=== PATIENT | female | born 1985 | race African-American/Black ===

== ENCOUNTER 2018-05-29 21:48 | Emergency (ER) | payer OTHER ==
[~2018-05-29] VITALS: Ht 147.3 cm; Wt 83.9 kg
[2018-05-29 22:00] VITALS: BP 121/79
--- NOTE | 2018-05-29 22:36 | PHYS DOC ---
Adult General Chief Complaint Chief Complaint: FLU SYMPTOM HPI HPI Patient is a 33-year-old female who presents with complaint of cough, fever, body aches and chills that started yesterday. Patient states that she also has some right ear pain and is worried that she has a right ear infection. 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 There are other sick contacts at home with son having just gotten similar symptoms today. She denies any vomiting or diarrhea. Review of Systems Review of Systems Constitutional: Positive fever and chills [] HENT: Positive congestion without sore throat. Positive right ear pain [] Respiratory: Positive cough without shortness of breath [] Cardiovascular: No additional information not addressed in HPI [] GI: Denies abdominal pain, nausea, vomiting or diarrhea [] Musculoskeletal: Positive body aches and back pain [] Integument: Denies rash or skin lesions [] Neurologic: Positive headache without focal weakness or sensory changes [] Current Medications Current Medications Current Medications Medications (Trade) Dose Ordered Sig/Ludmila Start Time Stop Time Status Last Admin Dose Admin Amoxicillin/ Clavulanate Potassium (Augmentin 875/ 125mg) 1 tab 1X ONCE 05/29/18 22:30 2 22:31 UNV Ibuprofen (Motrin) 600 mg 1X ONCE 05/29/18 22:30 2 22:31 UNV Physical Exam Physical Exam Constitutional: Well developed, well nourished, no acute distress, non-toxic appearance. [] HENT: Normocephalic, atraumatic, bilateral external ears normal, oropharynx moist, no oral exudates, nose normal. Right TM is dull and erythematous. [] Neck: Normal range of motion, no tenderness, supple, no stridor. [] Cardiovascular: Mildly tachycardic rate with regular rhythm[] Lungs & Thorax: Bilateral breath sounds clear to auscultation [] Abdomen: Bowel sounds normal, soft. [] Skin: Warm, dry, no erythema, no rash. [] Neurologic: Alert and oriented X 3, no focal deficits noted. [] EKG EKG [] Radiology/Procedures Radiology/Procedures [] Course & Med Decision Making Course & Med Decision Making Pertinent Labs and Imaging studies reviewed. (See chart for details) [] Dragon Disclaimer Dragon Disclaimer This electronic medical record was generated, in whole or in part, using a voice recognition dictation system. Departure Departure: Impression: Primary Impression: Influenza A Additional Impression: Otitis media Disposition: 01 HOME, SELF-CARE Condition: STABLE Referrals: PCP,UNKNOWN (PCP) Patient Instructions: Influenza, Adult, Otitis Media, Adult Scripts Sulfamethoxazole/Trimethoprim (BACTRIM DS TABLET) 1 Each Tablet 1 TAB PO BID for infection, #20 TAB Prov: AZUL HARKINS Jr. DO 05/29/18 Oseltamivir Phosphate (TAMIFLU) 75 Mg Capsule 1 CAP PO BID for flu, #10 CAP Prov: AZUL HARKINS Jr. DO 05/29/18 Problem Qualifiers Additional Impression: Otitis media Otitis media type: unspecified Chronicity: acute Qualified Codes: H66.90 - Otitis media, unspecified, unspecified ear AZUL HARKINS Jr. DO May 29, 2018 22:36
[2018-05-29] MEDS ORDERED: AMOXICILLIN/K CLAV 875/125MG TABLET. PO ONE (22:45)
[2018-05-29] MEDS ORDERED: IBUPROFEN 600 MG TABLET. PO ONE (22:45)
[2018-05-29] MEDS ORDERED: SMZ/TMP 800/160MG TABLET. PO ONE (22:55)
[2018-05-29 23:48] LABS: INFLUENZA A PATIENT POSITIVE (NEGATIVE); INFLUENZA B PATIENT NEGATIVE (NEGATIVE)
[2018-05-29] MEDS ORDERED: OSEL75CA PO (23:57)
[2018-05-29] MEDS ORDERED: SULF1TAB24 PO (23:57)
[2018-05-30] MEDS ORDERED: OSELTAMIVIR 75 MG CAPSULE PO ONE (00:30)
== END 2018-05-30 01:00 | disposition home or self-care (01) ==
LOC: ER 21:48
DX: J10.1 Influenza due to other identified influenza virus with other respiratory manifestations (principal); H66.91 Otitis media, unspecified, right ear
CPT/HCPCS: 87804; 99283